=== PATIENT | female | born 1960 | race Caucasian/White ===

== ENCOUNTER 2018-06-25 12:08 | Emergency (ER) | payer OTHER ==
[2018-06-25 12:35] VITALS: BP 114/67; PULSE 77; TEMP 98; BMI 27.3
--- NOTE | 2018-06-25 13:29 | PDOC ---
History of Present Illness - General Chief Complaint: Pain Stated Complaint: PAIN Time Seen by Provider: 06/25/18 13:29 History Source: Patient Exam Limitations: No Limitations - History of Present Illness Initial Comments: 06/25/18 13:50 58 year old female with PMH fibromyalia, OA presented to ED for epigastric pain x5 days. She stated her pain is constant, radiating to her left flank/back, no alleviating or aggravating factors, no association with exertion/food, described as "a pinch". She denied vomiting, fever, chest pain, shortness of breath, blood in stool. She admitted to nausea. She stated she had one episode of loose watery diarrhea yesterday. She stated she did not call her PCP, "because they would probably send me here anyways". PCP: Dr. Finley Neuro: Dr. Crawford Rheum: Dr. Rider Pt had routine labratory testing performed by Dr. Rider 06/17/18: - Hgb 10.9, HCT 32.3 - UA: trace LE, 0 WBC - ALP 135 - BUN 23 - Cr 0.8 Past History - Past Medical History Allergies/Adverse Reactions: Allergies Allergy/AdvReac Type Severity Reaction Status Date / Time No Known Drug Allergies Allergy Verified 06/25/18 12:35 Home Medications: Ambulatory Orders Duloxetine HCl [Cymbalta] 30 mg PO BID 05/28/15 Hydrocodone/Acetaminophen [Vicodin Es 7.5-300 mg Tablet] 1 each PO BID #14 tablet 05/28/15 Meloxicam [Mobic (Nf) -] 15 mg PO DAILY 05/28/15 Ondansetron [Zofran -] 4 mg PO BID #14 tablet 05/28/15 Pregabalin [Lyrica] 75 mg PO HS 05/28/15 Tramadol HCl 50 mg PO TID 05/28/15 Ibuprofen 600 mg PO TID #9 tablet 06/25/18 Sulfamethoxazole/Trimethoprim [Bactrim Ds -] 1 tab PO BID #20 tablet 06/25/18 Anemia: No Asthma: No Cancer: No Cardiac Disorders: No CVA: No COPD: No CHF: No Dementia: No Diabetes: No GI Disorders: No Disorders: No HTN: No Hypercholesterolemia: No Liver Disease: No Seizures: No Thyroid Disease: No - Surgical History Abdominal Surgery: No Appendectomy: No Cardiac Surgery: No Cholecystectomy: No Lung Surgery: No Neurologic Surgery: No Orthopedic Surgery: No - Immunization History Td Vaccination: Yes (2012) Immunization Up to Date: Yes - Suicide/Smoking/Psychosocial Hx Smoking Status: Yes Smoking History: Former smoker Have you smoked in the past 12 months: No Number of Cigarettes Smoked Daily: 3 Information on smoking cessation initiated: No Hx Alcohol Use: Yes Drug/Substance Use Hx: Yes Substance Use Type: Alcohol, Marijuana Hx Substance Use Treatment: No Review of Systems - Review of Systems Able to Perform ROS?: Yes Comments:: 06/25/18 13:55 General: denied fever, chills, night sweats, generalized weakness. HEENT: denied sore throat, rhinorrhea, ear pain. Heart: denied chest pain, palpitations, syncope, lower extremity swelling, diaphoresis. Respiratory: denied shortness of breath, cough, sputum production, hemoptysis. Abdomen: admitted to abdominal pain, nausea, diarrhea. denied vomiting, constipation, blood in stool. : denied dysuria, increased urinary frequency, hematuria, urinary incontinence , flank pain. Back: admitted to back pain. Musculoskeletal: denied joint pain, muscle pain, joint swelling. Neurological: denied headache, dizziness, numbness, tingling, weakness. Skin: denied rash, laceration, abrasion. *Physical Exam - Vital Signs Last Vital Signs Temp Pulse Resp BP Pulse Ox 98.0 F 77 17 114/67 95 06/25/18 12:32 06/25/18 12:32 06/25/18 12:32 06/25/18 12:32 06/25/18 12:32 - Physical Exam Comments: 06/25/18 13:57 Constitutional: Well-nourished, Well-developed, appearing stated age. HEENT: head is normocephalic, atraumatic. EOMI. PERRLA. Neck: supple. Full ROM. Heart: regular rhythm. no murmurs, rubs or gallops. Lungs: clear to auscultation bilaterally. no crackles, rhonchi or wheezing. no stridor. Abdomen: soft, flat. epigastric tenderness to palpation. normal bowel sounds. no rebound, guarding, masses. Back: positive left sided CVA tenderness. negative right sided CVA tenderness. Extremities: Peripheral pulses intact. No lower extremity edema. Neurological: CN 2-12 grossly intact. Moves all four extremities. Psych: awake, alert, oriented x3. Follows commands. Answers questions appropriately. Moderate Sedation - Procedure Monitoring Vital Signs: Procedure Monitoring Vital Signs Temperature 98.0 F 06/25/18 12:32 Pulse Rate 77 06/25/18 12:32 Respiratory Rate 17 06/25/18 12:32 Blood Pressure 114/67 06/25/18 12:32 O2 Sat by Pulse Oximetry (%) 95 06/25/18 12:32 ED Treatment Course - LABORATORY CBC & Chemistry Diagram: 06/25/18 13:47 06/25/18 13:45 Medical Decision Making - Medical Decision Making 06/25/18 13:57 58 year old female with above PMH presented to ED for epigastric pain radiating to left flank/back associated with nausea and 1 episode of diarrhea (loose, watery). Initial Vital Signs Temp Pulse Resp BP Pulse Ox 98.0 F 77 17 114/67 95 06/25/18 12:32 06/25/18 12:32 06/25/18 12:32 06/25/18 12:32 06/25/18 12:32 Afebrile. No tachycardia. No tachypnea. No hypotension. No hypoxia on room air. Pepcid, Maalox, Zofran ordered for epigastric pain/nausea. 1000 cc bolus normal saline ordered for hydration. Pending UA/UC, CBC, CMP for evaluation of possible UTI/nephrolithiasis. Pending EKG, cardiac enzymes for evaluation of possible ACS/arrhythmia. Pending lipase for evaluation of possible pancreatitis. 06/25/18 14:31 Urine Test Results Urine Color Yellow 06/25/18 13:45 Urine Appearance Clear 06/25/18 13:45 Urine pH 7.0 (5.0-8.0) 06/25/18 13:45 Ur Specific [place] 1.014 (1.010-1.035) 06/25/18 13:45 Urine Protein Negative (NEGATIVE) 06/25/18 13:45 Urine Glucose (UA) Negative (NEGATIVE) 06/25/18 13:45 Urine Ketones Negative (NEGATIVE) 06/25/18 13:45 Urine Blood Negative (NEGATIVE) 06/25/18 13:45 Urine Nitrite Negative (NEGATIVE) 06/25/18 13:45 Urine Bilirubin Negative (<2.0 mg/dL) 06/25/18 13:45 Ur Leukocyte Esterase 1+ (NEGATIVE) H 06/25/18 13:45 Ur Epithelial Cells Rare /HPF (FEW) 06/25/18 13:45 Urine Bacteria Rare /hpf (NONE SEEN) 06/25/18 13:45 Urine Mucus Rare 06/25/18 13:45 WBC>5 Pt has urinary tract infection, likely pyelo with patient having flank pain. - Bactrim ordered for antibiotic coverage - Toradol ordered for pain 06/25/18 14:35 Lab lost CBC tube. Will redraw. 06/25/18 15:00 CBC WBC 4.9 K/mm3 (4.0-10.0) 06/25/18 13:47 RBC 3.94 M/mm3 (3.60-5.2) 06/25/18 13:47 Hgb 12.6 GM/dL (10.7-15.3) 06/25/18 13:47 Hct 36.0 % (32.4-45.2) 06/25/18 13:47 MCV 91.3 fl (80-96) 06/25/18 13:47 MCH 31.9 pg (25.7-33.7) 06/25/18 13:47 MCHC 34.9 g/dl (32.0-36.0) 06/25/18 13:47 RDW 17.3 % (11.6-15.6) H 06/25/18 13:47 Plt Count 350 K/MM3 (134-434) 06/25/18 13:47 MPV 7.9 fl (7.5-11.1) 06/25/18 13:47 Absolute Neuts (auto) 2.7 K/mm3 (1.5-8.0) 06/25/18 13:47 Neutrophils % 54.2 % (42.8-82.8) 06/25/18 13:47 Lymphocytes % 36.4 % (8-40) 06/25/18 13:47 Monocytes % 7.3 % (3.8-10.2) 06/25/18 13:47 Eosinophils % 1.5 % (0-4.5) 06/25/18 13:47 Basophils % 0.6 % (0-2.0) 06/25/18 13:47 Nucleated RBC % 0 % (0-0) 06/25/18 13:47 No leukocytosis. No anemia. CMP Sodium 139 mmol/L (136-145) 06/25/18 13:45 Potassium 4.5 mmol/L (3.5-5.1) 06/25/18 13:45 Chloride 102 mmol/L (98-107) 06/25/18 13:45 Carbon Dioxide 29 mmol/L (21-32) 06/25/18 13:45 Anion Gap 7 MMOL/L (8-16) L 06/25/18 13:45 BUN 11 mg/dL (7-18) 06/25/18 13:45 Creatinine 0.7 mg/dL (0.55-1.3) 06/25/18 13:45 Creat Clearance w eGFR > 60 (>60) 06/25/18 13:45 Random Glucose 77 mg/dL (74-106) 06/25/18 13:45 Calcium 9.2 mg/dL (8.5-10.1) 06/25/18 13:45 Total Bilirubin 0.4 mg/dL (0.2-1) 06/25/18 13:45 AST 41 U/L (15-37) H 06/25/18 13:45 ALT 39 U/L (13-61) 06/25/18 13:45 Alkaline Phosphatase 175 U/L (45-117) H 06/25/18 13:45 Creatine Kinase 70 IU/L (26-192) 06/25/18 13:45 Troponin I < 0.02 ng/ml (0.00-0.05) 06/25/18 13:45 Total Protein 7.8 g/dl (6.4-8.2) 06/25/18 13:45 Albumin 4.0 g/dl (3.4-5.0) 06/25/18 13:45 Lipase 237 U/L (73-393) 06/25/18 13:45 No electrolyte abnormalities. No ALENA. Mild elevation of AST. Normal cardiac enzymes. Normal lipase. 06/25/18 15:05 EKG performed at 1500: rate 71, regular rhythm, normal axis, normal intervals, isolated flat T in aVL. - No prior to compare - Pt denied chest pain Pt will be discharged with Bactrim and Ibuprofen prescription. *DC/Admit/Observation/Transfer Diagnosis at time of Disposition: Urinary tract infection, Pyelonephritis - Discharge Dispostion Disposition: HOME Condition at time of disposition: Stable Decision to Admit order: No - Prescriptions Prescriptions: Ibuprofen 600 mg PO TID #9 tablet Sulfamethoxazole/Trimethoprim [Bactrim Ds -] 1 tab PO BID #20 tablet - Referrals Referrals: Flori Finley MD [Primary Care Provider] - - Patient Instructions Printed Discharge Instructions: DI for Kidney Infection Additional Instructions: You were seen today for abdominal and flank pain. Your urine analysis revealed a urinary tract infection that has likely tracked up to your kidney and is causing your flank pain. I have sent a prescription to your pharmacy for an antibiotic and pain medication. Take as advised on labels. Finish ALL of the antibiotics, do not stop early or miss any doses. Drink lots of clear fluids, like water, to stay hydrated. Follow up with your primary care doctor in 1-2 days, tell them you were seen in the Emergency Department. Your care is not complete until you follow up. Return to the Emergency Department for worsening pain, fever, vomiting, chest pain, shortness of breath, lightheadedness or any other new, worsening or concerning symptoms. - Post Discharge Activity Forms/Work/School Notes: Back to Work
[2018-06-25] MEDS ORDERED: ONDANSETRON 4 MG/2 ML VIAL IVPUSH ONE (13:55)
[2018-06-25] MEDS ORDERED: FAMOTIDINE 20 MG/50 ML IVPB 20 MG/50 ML MG IVPB ONE ×2 (13:55→15:00)
[2018-06-25] MEDS ORDERED: MAG HYDROX/AL HYDROX/SIMETH 30 ML UNIT-DOSE CUP PO ONE (13:55)
[2018-06-25] MEDS ORDERED: SODIUM CHLORIDE 1,000 ML IV STA (13:55)
[2018-06-25 14:09] LABS: URINE APPEARANCE CLEAR; URINE BILIRUBIN NEGATIVE (<2.0 mg/dL); URINE COLOR YELLOW; URINE GLUCOSE (UA) NEGATIVE (NEGATIVE); URINE KETONE NEGATIVE (NEGATIVE); URINE LEUK ESTERASE 1+ (NEGATIVE); URINE NITRITE NEGATIVE (NEGATIVE); URINE PROTEIN NEGATIVE (NEGATIVE); URINE UROBILINOGEN NEGATIVE mg/dL (0.2-1.0)
[2018-06-25 14:21] LABS: INR 0.97 (0.83-1.09); PROTHROMBIN TIME (PATIENT) 11.4 SEC (9.7-13.0)
[2018-06-25 14:24] LABS: ACTIVATED PTT 32.9 SECONDS (25.2-36.5)
[2018-06-25 14:27] LABS: EPI CELLS RARE /HPF (FEW); URINE BACTERIA RARE /hpf (NONE SEEN); URINE MUCUS RARE
[2018-06-25] MEDS ORDERED: SULFAMETHOXAZOLE/TRIMETHOPRIM 800MG/160MG D.S. TABLET PO ONE (14:30)
[2018-06-25] MEDS ORDERED: KETOROLAC TROMETHAMINE 30 MG/1 ML VIAL IVPUSH ONE (14:30)
[2018-06-25 14:46] LABS: ALK PHOS 175 U/L (45-117); ANION GAP 7 MMOL/L (8-16); BILIRUBIN,TOTAL 0.4 mg/dL (0.2-1); BLOOD UREA NITROGEN 11 mg/dL (7-18); CALCIUM 9.2 mg/dL (8.5-10.1); CHLORIDE 102 mmol/L (98-107); CO2 29 mmol/L (21-32); CREATININE 0.7 mg/dL (0.55-1.3); GLUCOSE,RANDOM 77 mg/dL (74-106); LIPASE 237 U/L (73-393); POTASSIUM 4.5 mmol/L (3.5-5.1); SGOT/AST 41 U/L (15-37); SGPT/ALT 39 U/L (13-61); SODIUM 139 mmol/L (136-145); TOT PROT 7.8 g/dl (6.4-8.2)
[2018-06-25 14:57] LABS: BASO % 0.6 % (0-2.0); EOS % 1.5 % (0-4.5); HEMOGLOBIN 12.6 GM/dL (10.7-15.3); LYMPH % 36.4 % (8-40); MCH 31.9 pg (25.7-33.7); MCHC 34.9 g/dl (32.0-36.0); MEAN CELL VOLUME 91.3 fl (80-96); MEAN PLT VOLUME 7.9 fl (7.5-11.1); MONO % 7.3 % (3.8-10.2); NEUT % 54.2 % (42.8-82.8); PLATELET COUNT 350 K/MM3 (134-434); RBC 3.94 M/mm3 (3.60-5.2); RDW 17.3 % (11.6-15.6); WHITE BLOOD COUNT 4.9 K/mm3 (4.0-10.0)
[2018-06-25] MEDS ORDERED: SULFAMETHOXAZOLE/TRIMETHOPRIM 800MG/160MG D.S. TABLET ONE (14:59)
[2018-06-25] MEDS ORDERED: MAG HYDROX/AL HYDROX/SIMETH 30 ML UNIT-DOSE CUP ONE (15:00)
[2018-06-25] MEDS ORDERED: KETOROLAC TROMETHAMINE 30 MG/1 ML VIAL ONE (15:00)
[2018-06-25] MEDS ORDERED: ONDANSETRON 4 MG/2 ML VIAL ONE (15:00)
--- NOTE | 2018-06-25 15:58 | PDOC ---
Attending Attestation - Resident Resident Name: Carmela Ingram - ED Attending Attestation I have performed the following: I have examined & evaluated the patient, The case was reviewed & discussed with the resident, I agree w/resident's findings & plan - HPI HPI: 06/25/18 15:56 58-year-old female with history of multiple pain syndromes presents with 5 days of worsening epigastric/left flank pain, no fevers or chills or urinary complaints, nausea but no vomiting or diarrhea or constipation. No history of UTI or kidney stone, no history of recurring gastritis or ulcers. - Physicial Exam PE: 06/25/18 15:57 vitals are within normal limits Comfortable and well-appearing Abdomen is soft and nondistended, tender in the left upper quadrant and mostly tender in the left CVA region, no guarding or rebound No rash - Medical Decision Making 06/25/18 15:57 58-year-old female with left flank pain progressive over 5 days, exam localizes to left flank, no signs or symptoms of SIRS or sepsis. Labs are within normal limits Urinalysis with elevated white blood cells, only 1 red blood cell. Consistent with pyelonephritis without complications or evidence of sepsis Received IV fluids, candidate for discharge on oral antibiotic regimen, follow up with PCP, understands strict return criteria Heart Score/ECG Review #1 ECG reviewed & interpreted by me at: 15:00 General ECG Interpretation: Sinus Rhythm, Normal Rate (71), Normal Intervals ( qtc 449), No acute ischemic changes
--- NOTE | 2018-06-26 12:45 | EKG ---
Test Reason : Blood Pressure : / mmHG Vent. Rate : 071 BPM Atrial Rate : 071 BPM P-R Int : 154 ms QRS Dur : 078 ms QT Int : 414 ms P-R-T Axes : 073 078 066 degrees QTc Int : 449 ms NORMAL SINUS RHYTHM NORMAL ECG NO PREVIOUS ECGS AVAILABLE Confirmed by NALDO ALICIA, KAREN ([id number]) on 06/26/2018 12:45:31 PM Referred By: Confirmed By:KAREN HITCHCOCK MD
== END 2018-06-25 15:35 | disposition home or self-care (01) ==
LOC: JER 12:08
PROC: 3E033GC Introduction of Other Therapeutic Substance into Peripheral Vein, Percutaneous Approach (ICD-10-PCS; principal; 2018-06-25)
PROC: 3E033GC Introduction of Other Therapeutic Substance into Peripheral Vein, Percutaneous Approach (ICD-10-PCS; 2018-06-25)
PROC: 3E0333Z Introduction of Anti-inflammatory into Peripheral Vein, Percutaneous Approach (ICD-10-PCS; 2018-06-25)
DX: N39.0 Urinary tract infection, site not specified (principal); N12 Tubulo-interstitial nephritis, not specified as acute or chronic; B96.89 Other specified bacterial agents as the cause of diseases classified elsewhere; M79.7 Fibromyalgia; M19.90 Unspecified osteoarthritis, unspecified site
CPT/HCPCS: 36415; 80053; 81003; 81015; 82550; 83690; 84484; 85025; 85610; 85730; 86850; 86900; 86901; 87086; 87186; 93005; 93010; 96365; 96375; 99282-25; J7030

== ENCOUNTER 2019-04-04 12:56 | Emergency (ER) | payer OTHER ==
[2019-04-04 13:10] VITALS: BP 126/68; PULSE 71; TEMP 97.6; BMI 28.5
[2019-04-04] MEDS ORDERED: LIDOCAINE 5% TOPICAL PATCH TP ONE (13:26)
[2019-04-04] MEDS ORDERED: KETOROLAC TROMETHAMINE 60 MG/2 ML VIAL IM ONE (13:26)
--- NOTE | 2019-04-04 13:36 | PDOC ---
History of Present Illness - General Chief Complaint: Back Pain Stated Complaint: BACK PAIN Time Seen by Provider: 04/04/19 13:11 History Source: Patient Exam Limitations: No Limitations Past History - Travel Traveled outside of the country in the last 30 days: No Close contact w/someone who was outside of country & ill: No - Past Medical History Allergies/Adverse Reactions: Allergies Allergy/AdvReac Type Severity Reaction Status Date / Time No Known Drug Allergies Allergy Verified 04/04/19 13:05 Home Medications: Ambulatory Orders Duloxetine HCl [Cymbalta] 30 mg PO BID 05/28/15 Hydrocodone/Acetaminophen [Vicodin Es 7.5-300 mg Tablet] 1 each PO BID #14 tablet 05/28/15 Meloxicam [Mobic (Nf) -] 15 mg PO DAILY 05/28/15 Ondansetron [Zofran -] 4 mg PO BID #14 tablet 05/28/15 Pregabalin [Lyrica] 75 mg PO HS 05/28/15 Tramadol HCl 50 mg PO TID 05/28/15 Ibuprofen 600 mg PO TID #9 tablet 06/25/18 Sulfamethoxazole/Trimethoprim [Bactrim Ds -] 1 tab PO BID #20 tablet 06/25/18 Diclofenac Sodium [Voltaren] 100 gm TP DAILY #1 tube 04/04/19 Anemia: No Asthma: No Cancer: No Cardiac Disorders: No CVA: No COPD: No CHF: No Dementia: No Diabetes: No GI Disorders: No Disorders: No HTN: No Hypercholesterolemia: No Liver Disease: No Seizures: No Thyroid Disease: No - Surgical History Abdominal Surgery: No Appendectomy: No Cardiac Surgery: No Cholecystectomy: No Lung Surgery: No Neurologic Surgery: No Orthopedic Surgery: No - Immunization History Td Vaccination: Yes (2012) Immunization Up to Date: Yes - Suicide/Smoking/Psychosocial Hx Smoking Status: Yes Smoking History: Former smoker Have you smoked in the past 12 months: No Number of Cigarettes Smoked Daily: 3 If you are a former smoker, when did you quit?: 2017 Information on smoking cessation initiated: No Hx Alcohol Use: No Drug/Substance Use Hx: No Substance Use Type: Alcohol, Marijuana Hx Substance Use Treatment: No Review of Systems - Review of Systems Able to Perform ROS?: Yes Comments:: 04/04/19 13:36 CONSTITUTIONAL: Absent: fever, chills, diaphoresis, generalized weakness, malaise, loss of appetite GASTROINTESTINAL: Absent: abdominal pain, abdominal distension, nausea, vomiting, diarrhea, constipation, melena, hematochezia GENITOURINARY: Absent: dysuria, frequency, urgency, hesitancy, hematuria, flank pain, genital pain MUSCULOSKELETAL: Present: low back pain Absent: arthralgia, joint swelling SKIN: Absent: rash, itching, pallor NEUROLOGIC: Absent: headache, focal weakness or paresthesias, dizziness, unsteady gait, seizure, mental status changes, bladder or bowel incontinence PSYCHIATRIC: Absent: anxiety, depression, suicidal or homicidal ideation, hallucinations. Is the patient limited Malaysian proficient: No *Physical Exam - Vital Signs Last Vital Signs Temp Pulse Resp BP Pulse Ox 97.6 F 71 16 126/68 99 04/04/19 13:05 04/04/19 13:05 04/04/19 13:05 04/04/19 13:05 04/04/19 13:05 - Physical Exam Comments: 04/04/19 13:37 GENERAL: Well developed, well nourished. Awake and alert. No acute distress. HEENT: Normocephalic, atraumatic. PERRLA, EOMI. No conjunctival pallor. Sclera are non- icteric. Moist mucous membranes. Oropharynx is clear. NECK: Supple. Full ROM. No JVD. Carotid pulses 2+ and symmetric, without bruits. No thyromegaly. No lymphadenopathy. CARDIOVASCULAR: Regular rate and rhythm. No murmurs, rubs, or gallops. Distal pulses are 2+ and symmetric. PULMONARY: No evidence of respiratory distress. Lungs clear to auscultation bilaterally. No wheezing, rales or rhonchi. ABDOMINAL: Soft. Non-tender. Non-distended. No rebound or guarding. No organomegaly. Normoactive bowel sounds. MUSCULOSKELETAL TTP of the R paraspinous muscles, L3-L5, with palpable knot consistent with muscle spasm. (+) straight leg raise on the R. Normal range of motion at all joints. No bony deformities or tenderness. No CVA tenderness. EXTREMITIES: No cyanosis. No clubbing. No edema. No calf tenderness. SKIN: Warm and dry. Normal capillary refill. No rashes. No jaundice. NEUROLOGICAL: Alert, awake, appropriate. Cranial nerves 2-12 intact. No deficits to light touch and temperature in face, upper extremities and lower extremities. No motor deficits in the in face, upper extremities and lower extremities. Normoreflexic in the upper and lower extremities. Normal speech. Toes are down- going bilaterally. Gait is normal without ataxia. PSYCHIATRIC: Cooperative. Good eye contact. Appropriate mood and affect. Medical Decision Making - Medical Decision Making 04/04/19 13:39 The patient 58 y/o F who presents to the ER for low back pain. She has hx of herniated discs at L4 and L5 and follows with pain management. She was supposed to see her pain management doctor today but her appointment got cancelled. She states that she is having a flare of her low back pain and that it is radiating down the R leg. She is requesting a toradol shot at this time. Denies fevers, chills, trauma, saddle anesthesia, bladder/bowel incontinence. A/P: Low back pain -Pt with TTP of the R paraspinous muscles, L3-L5, with palpable knot consistent with muscle spasm. (+) straight leg raise on the R -No trauma, or fever. No saddle anesthesia or bladder/bowel incontinence. No CVA tenderness. -Pt is neurologically intact on exam with no focal findings. -Toradol given with relief of symptoms -DC home. Ortho follow up given for if symptoms do not resolve. -I discussed the physical exam findings, ancillary test results and final diagnoses with the patient. I answered all of the patient's questions. The patient was satisfied with the care received and felt comfortable with the discharge plan and treatment plan. The Patient agrees to follow up with the primary care physician/specialist within 24-72 hours. Return precautions were given. *DC/Admit/Observation/Transfer Diagnosis at time of Disposition: Low back pain Qualifiers: Chronicity: acute Back pain laterality: right Sciatica presence: with sciatica Sciatica laterality: sciatica of right side Qualified Code(s): M54.41 - Lumbago with sciatica, right side - Discharge Dispostion Disposition: HOME Condition at time of disposition: Stable Decision to Admit order: No - Referrals Referrals: Jordan Araujo MD [Staff Physician] - - Patient Instructions Printed Discharge Instructions: DI for Low Back Pain Additional Instructions: You were evaluated for your back pain Take your medications as prescribed by pain management You may use the Volteran cream once a day to the affected area Please follow up with your pain management doctor this week Return to the ER for numbness or tingling in your groin, weakness to the extremities, loss of bladder/bowel function - Post Discharge Activity
[2019-04-04] MEDS ORDERED: KETOROLAC TROMETHAMINE 60 MG/2 ML VIAL ONE (13:38)
[2019-04-04] MEDS ORDERED: LIDOCAINE 5% TOPICAL PATCH ONE (13:38)
== END 2019-04-04 13:59 | disposition home or self-care (01) ==
LOC: JERFT 12:56
PROC: 3E0233Z Introduction of Anti-inflammatory into Muscle, Percutaneous Approach (ICD-10-PCS; principal; 2019-04-04)
DX: M54.41 Lumbago with sciatica, right side (principal); Z87.891 Personal history of nicotine dependence
CPT/HCPCS: 96372; 99281-25

== ENCOUNTER 2020-03-17 09:59 | Emergency (ER) | payer OTHER ==
[2020-03-17 10:18] VITALS: BP 109/62; PULSE 83; TEMP 98; BMI 29.6
[2020-03-17] MEDS ORDERED: SULFAMETHOXAZOLE/TRIMETHOPRIM 800MG/160MG D.S. TABLET PO ONE (10:57)
--- NOTE | 2020-03-17 11:03 | PDOC ---
History of Present Illness - General Chief Complaint: Pain Stated Complaint: RT TOE INJURY Time Seen by Provider: 03/17/20 10:32 History Source: Patient Exam Limitations: No Limitations - History of Present Illness Initial Comments: 03/17/20 10:58 Patient is a 59-year-old female who presents to the ED with a right great toe infection that she has been struggling with since January 21, 2020. She states she was out shopping when somebody ran over her great toe with a shopping cart. Since then she has been having waxing and waning infection to the toe. She states she has had pus coming from the toe which she has soaked and expressed over the last month and a half. She denies any fevers or chills. She states yesterday the pus increased so she came to the emergency department for further evaluation. She states her primary doctor is out on vacation. She is also having surgery tomorrow with Dr. Franco for a rotator cuff on the right side. The patient states the area does hurt but she denies any significant pain. The patient states she has orthopaedic history but not other medical history. Past History - Medical History Allergies/Adverse Reactions: Allergies Allergy/AdvReac Type Severity Reaction Status Date / Time No Known Drug Allergies Allergy Verified 03/17/20 10:18 Home Medications: Ambulatory Orders Meloxicam [Mobic (Nf) -] 15 mg PO DAILY 05/28/15 Amitriptyline HCl [Elavil -] 50 mg PO HS 03/11/20 Cetirizine HCl [Zyrtec] 10 mg PO DAILY 03/11/20 Diclofenac Sodium [Voltaren] 100 gm TP DAILY PRN 03/11/20 Duloxetine HCl [Cymbalta] 60 mg PO BID 03/11/20 Pramipexole Di-HCl [Mirapex] 1 mg PO BID 03/11/20 Pregabalin [Lyrica -] 150 mg PO TID 03/11/20 Topiramate 50 mg PO DAILY 03/11/20 Sulfamethoxazole/Trimethoprim [Bactrim Ds Tablet] 1 each PO BID 7 Days #14 tablet 03/17/20 Anemia: No Asthma: No Cancer: No Cardiac Disorders: No CVA: No COPD: No CHF: No Dementia: No Diabetes: No GI Disorders: No Disorders: No HTN: No Hypercholesterolemia: No Liver Disease: No Seizures: No Thyroid Disease: No - Surgical History Abdominal Surgery: No Appendectomy: No Cardiac Surgery: No Cholecystectomy: No Lung Surgery: No Neurologic Surgery: No Orthopedic Surgery: No - Immunization History Td Vaccination: Yes (2012) Immunization Up to Date: Yes - Psycho-Social/Smoking History Smoking Status: Yes Smoking History: Never smoked Have you smoked in the past 12 months: No Number of Cigarettes Smoked Daily: 3 If you are a former smoker, when did you quit?: 2017 - Substance Abuse Hx (Audit-C & DAST Scrn) How often the patient has a drink containing alcohol: Never Score: In Men: 4 or > Positive; In Women: 3 or > Positive: 0 Screen Result (Pos requires Nsg. Audit-10AR): Negative Review of Systems - Review of Systems Comments:: 03/17/20 11:02 - Review of Systems Able to Perform ROS?: Yes Constitutional: No: Fever, Chills, Loss of Appetite, Night Sweats, Weakness HEENTM: No: Eye Pain, Vision changes, Ear Pain, Throat Pain, Throat Swelling, Mouth Pain, Difficulty Swallowing Respiratory: No: Cough, Shortness of Breath, Wheezing, Sputum Production Cardiac (ROS): No: Chest Pain, Chest Tightness, Palpitations, Irregular Heart Beat, Edema ABD/GI: No: Nausea, Vomiting, Abdominal Pain, Diarrhea : No Dysuria, No Hematuria, No Frequency, No Urgency Musculoskeletal: No: Muscle Pain, Back Pain, Joint Pain, Muscle Weakness, Neck Pain Integumentary: No: Lesions, Rash; Positive: right great toe paronychia Neurological: No: Headache, Numbness, Tingling, Weakness, Speech Difficulties *Physical Exam - Vital Signs Last Vital Signs Temp Pulse Resp BP Pulse Ox 98 F 83 18 109/62 99 03/17/20 10:14 03/17/20 10:14 03/17/20 10:14 03/17/20 10:14 03/17/20 10:14 - Physical Exam 03/17/20 11:03 - Physical Exam General Appearance: Nourished, Appropriately Dressed, No Distress HEENT: EOMI, Normal Voice, Hearing Grossly Normal Neck: Supple, No Lymphadenopathy (R), No Lymphadenopathy (L), No Rigidity, No Decreased range of motion Respiratory/Chest: Lungs Clear, Normal Breath Sounds. No Respiratory Distress, No Accessory Muscle Use Cardiovascular: Regular Rhythm, Regular Rate, S1, S2 Musculoskeletal: Normal Inspection. No Decreased Range of Motion Extremity: Normal Capillary Refill, Normal Inspection Integumentary: Normal Color, Dry. No Rash; there is a paronychia appreciated to the right great toe with active drainage. There is some erythema to the medial aspect of the right great toe. DP and PT pulses palpated. Sensation intact distally. No crepitus appreciated. Neurologic: warp hauler II-XII NML intact, Fully Oriented, Alert, Normal Mood/Affect, Normal Response Medical Decision Making - Medical Decision Making 03/17/20 11:05 Assessment: Patient is a 59-year-old female with a right great toe paronychia that is already draining. Plan: -Pus expressed until clear blood drained. -First dose of Bactrim given to the patient in the ED -The patient has been made aware to speak with Dr. Franco regarding her great toe infection as she is supposed to have surgery tomorrow for her left shoulder. -We will discharge the patient with a prescription for Bactrim. -She understands and agrees with this treatment plan and she is stable for discharge. Discharge - Discharge Information Problems reviewed: Yes Clinical Impression/Diagnosis: Paronychia of great toe, right Condition: Stable Disposition: HOME - Additional Discharge Information Prescriptions: Sulfamethoxazole/Trimethoprim [Bactrim Ds Tablet] 1 each PO BID 7 Days #14 tablet - Follow up/Referral Referrals: Zofia Jackson MD [Primary Care Provider] - Nimesh Franco MD [Staff Physician] - Marlon Quiroga MD [Staff Physician] - (Call today for an appointment) Jaylen Jaramillo DPM [Staff Physician] - (Call for an appointment) - Patient Discharge Instructions Patient Printed Discharge Instructions: DI for Paronychia Additional Instructions: You have an infection to the skin surrounding your great toe. You should continue to soak the toe to help the wound express the pus. Be sure to call your orthopedic surgeon, Dr. Franco, to discuss with him that you do have an infection in your toe for your upcoming surgery tomorrow. Follow-up with orthopedic surgery if they treat toes, otherwise you can follow-up with 1 of the blast furnace supervisor that we have referred to you. Take the antibiotics as prescribed and complete the entire course. Keep the wound clean and dry. - Post Discharge Activity
[2020-03-17] MEDS ORDERED: SULFAMETHOXAZOLE/TRIMETHOPRIM 800MG/160MG D.S. TABLET ONE (11:10)
== END 2020-03-17 11:17 | disposition home or self-care (01) ==
LOC: JERFT 09:59
DX: L03.031 Cellulitis of right toe (principal)
CPT/HCPCS: 99283-25

== ENCOUNTER 2020-04-08 06:09 | Day surgery (SDC) | payer OTHER ==
[2020-03-11 11:02] VITALS: BMI 29.6
[2020-04-08] MEDS ORDERED: MIDAZOLAM HCL 2 MG/2 ML SINGLE DOSE VIAL ONE ×2 (06:56→07:19)
[2020-04-08] MEDS ORDERED: SUCCINYLCHOLINE CHLORIDE 200 MG/10 ML SYRINGE ONE (06:58)
[2020-04-08] MEDS ORDERED: LIDOCAINE HCL/PF 2% SDV 5ML VIAL ONE (06:59)
[2020-04-08] MEDS ORDERED: ONDANSETRON 4 MG/2 ML VIAL ONE (06:59)
[2020-04-08] MEDS ORDERED: KETOROLAC TROMETHAMINE 30 MG/1 ML VIAL ONE (06:59)
[2020-04-08] MEDS ORDERED: DEXAMETHASONE SOD PHOSPHATE 4 MG/1 ML VIAL ONE (06:59)
[2020-04-08] MEDS ORDERED: ROCURONIUM BROMIDE 50 MG/5 ML SYRINGE ONE (06:59)
[2020-04-08] MEDS ORDERED: PROPOFOL 20 ML ONE ×2 (07:00→08:20)
[2020-04-08] MEDS ORDERED: oxyCODONE HCL 5 MG TABLET PO PRN ×2 (07:13)
[2020-04-08] MEDS ORDERED: ONDANSETRON 4 MG/2 ML VIAL IVPUSH PRN (07:13)
[2020-04-08] MEDS ORDERED: LACTATED RINGERS SOLUTION 1,000 ML IV SCH (07:15)
[2020-04-08] MEDS ORDERED: ROPIVACAINE HCL 0.5% 30ML VIAL ONE (07:19)
--- NOTE | 2020-04-08 07:58 | HP ---
[facility] - Chief Complaint Chief Complaint: left shoulder pain - Past Medical History Allergies/Adverse Reactions: Allergies Allergy/AdvReac Type Severity Reaction Status Date / Time No Known Drug Allergies Allergy Verified 04/08/20 06:32 - Current Medications Current Medications: Home Medications Medication Instructions Recorded Meloxicam [Mobic (Nf) -] 15 mg PO DAILY 05/28/15 Amitriptyline HCl [Elavil -] 50 mg PO HS 03/11/20 Cetirizine HCl [Zyrtec] 10 mg PO DAILY 03/11/20 Diclofenac Sodium [Voltaren] 100 gm TP DAILY PRN 03/11/20 Duloxetine HCl [Cymbalta] 60 mg PO BID 03/11/20 Pramipexole Di-HCl [Mirapex] 1 mg PO BID 03/11/20 Pregabalin [Lyrica -] 150 mg PO TID 03/11/20 Topiramate 50 mg PO DAILY 03/11/20 Metoprolol Succinate 04/08/20 Satellite Physical Exam - Physical Examination Vital Signs: Vital Signs Period Temp Pulse Resp BP Sys/Skelton Pulse Ox Last 24 Hr 97.7 F 73 20 104/54 99 General Appearance: Well Nourished, Well Developed, Alert & Oriented x3 ENT: Clear Lung: Normal air movement Extremities: Other (left shoulder- + ttp, decr rom, + neer, + abad, + empty can, nvi) Neurological: Intact, Alert, Oriented Satellite Impression/Plan - Impression/Plan Impression: left shoulder impingement, rct Operative Procedure: left shoulder arthroscopy with RCR, SAD Date to be Performed: 04/08/20
[2020-04-08] MEDS ORDERED: ceFAZolin SODIUM 1 GM VIAL ONE (08:26)
--- NOTE | 2020-04-08 09:04 | OP ---
Operative Note - Note: Operative Date: 04/08/20 Pre-Operative Diagnosis: left shoulder impingement syndrome, RTC tear Operation: left shoulder arthroscopy, subacromial decompression, distal clavicle excision Findings: very small partial undersurface RTC tear Post-Operative Diagnosis: Same as Pre-op Surgeon: Nimesh Franco Refrigerator Cabinetmaker: Declan Levin Anesthesiologist/GROCERY CADDY: Akin Elise Anesthesia: General, Local Specimens Removed: shavings Estimated Blood Loss (mls): 15 Drains, Volume Out (mls): 0 Blood Volume Replaced (mls): 0 Fluid Volume Replaced (mls): 1,000 Operative Report Dictated: Yes
--- NOTE | 2020-04-08 09:05 | OP ---
Operative Note - Note: Operative Date: 04/08/20 (pauline) Pre-Operative Diagnosis: left shoulder impingement, rct Operation: left shoulder arthroscopy with JH PARK, PAMELA Post-Operative Diagnosis: Same as Pre-op Surgeon: Nimesh Franco Under Cutter: Declan Levin Anesthesiologist/DICER MACHINE OPERATOR: Kosta Cuenca Anesthesia: General, Local Specimens Removed: shavings Estimated Blood Loss (mls): 5
--- NOTE | 2020-04-08 10:24 | OP ---
DATE OF OPERATION: 04/08/2020 PREOPERATIVE DIAGNOSIS: Left shoulder impingement syndrome and rotator cuff tear. POSTOPERATIVE DIAGNOSIS: Left shoulder impingement syndrome. SURGERY: Left shoulder arthroscopy, subacromial decompression and distal clavicle excision. SURGEON: Chikis Bennett MD CONCRETE PAVER: RYAN Meneses ANESTHESIOLOGIST: Kosta Cuenca MD and Akin Elise MD ANESTHESIA: Left interscalene block with LMA anesthesia. DRAINS: None. COMPLICATIONS: None. BLOOD LOSS: 15 mL BLOOD GIVEN: None. FLUID REPLACEMENT: Plasma-Lyte 1000 mL SPECIMEN: Arthroscopic shavings. INDICATIONS: This patient is a 59-year-old female with a preoperative diagnosis of left shoulder impingement syndrome and likely rotator cuff tear. After understanding the potential risks, complications, alternatives, benefits of surgery versus nonsurgical treatment the patient elected to undergo this procedure. DESCRIPTION OF PROCEDURE: Patient was brought to the operating room. Peripheral IV placed and IV sedation given. Two g of IV Ancef were given. Left interscalene block was performed. LMA anesthesia was induced. The patient was placed into the beach chair position with ample padding throughout. The left upper extremity was then manipulated and was seen to be loose. It was not tight. She did not have adhesive capsulitis. The left upper extremity was then prepped and draped in a sterile fashion. The bone landmarks were marked out with a marking pen. A posterior portal was established. A diagnostic glenohumeral arthroscopy was performed. From inside the joint everything looked good. Patient's labrum, glenoid, humeral head all looked good with no osteoarthritis or degeneration. The biceps tendon and the undersurface of the rotator cuff also looked good with perhaps a 1% to 2% tear/fraying on the undersurface of the rotator cuff, but otherwise looked good. There was no significant tear, certainly no complete tear, no retractions. It all looked good. Next, our attention turned to the subacromial space. Through the posterior portal a lateral portal was established under direct visualization using a spinal needle. A No. 15 scalpel blade within the green cannula was introduced in the subacromial space. Patient had a moderate amount of soft tissue bursitis and inflammation. The soft tissue bursectomy was done with the ArthroCare wand. Extensive subdeltoid bursectomy was performed after this extensive soft tissue debridement. I did directly visualize the top surface of the rotator cuff and it was seen to be pristine, intact with no tear whatsoever. Patient had a large subacromial spur and a very large sub distal clavicular spur, both of which were taken down with a 5.5-mm oval bur. The bony decompression was fine-tuned in reverse and then with the straight shaver. Once this was done, photographs were taken. The arm was put through a full range of motion under direct visualization and there were no points of near compression. Again, the top surface of the rotator cuff was directly visualized and again there were no tears. It was probed with the blunt end of the trocar. There were no thin portions, no tear whatsoever. The decision was made not to do a rotator cuff repair. The area was copiously irrigated and washed out. All instrumentation, excess saline and debris were removed. The arthroscopy portals were closed with 3-0 nylon sutures covered with Aquacel dressing. The patient's arm was put into a sling. Extubated. Total operative time was about 40 minutes. There were no complications during the case. The patient tolerated the procedure quite well and was brought to the ambulatory recovery room in stable condition. CHIKIS BENNETT M.D. [id number]
[2020-04-08 10:58] VITALS: BP 102/60; PULSE 70; TEMP 97.8
--- NOTE | 2020-04-12 17:52 | PATH ---
Surgical Pathology Report Patient Name: JIM MILLER [facility]. Rec. #: [id number] /Age/Gender: 1960 (Age: 59) / F Account: [id number] Location: [facility] Taken: 04/08/2020 Received: 04/08/2020 Reported: 04/12/2020 Physicians: Nimesh Franco M.D. Specimen(s) Received SHAVINGS LEFT SHOULDER Clinical History Left shoulder impingement syndrome, rotator cuff tear Final Diagnosis SHOULDER SHAVINGS, LEFT, ARTHROSCOPY, SUBACROMIAL DECOMPRESSION: FRAGMENTS OF BENIGN CARTILAGE, BONE, DENSE FIBROCONNECTIVE TISSUE, ADIPOSE TISSUE, AND SKELETAL MUSCLE. Electronically Signed Juju Abebe M.D. Gross Description Received in formalin labeled "left shoulder shavings," is a 4.0 x 4.0 x 1.0 cm aggregate of iraheta-yellow soft tissue fragments. The formalin is filtered and u.s. representative portions submitted in one cassette. ROMINA/04/09/2020 margarita/04/09/2020
== END 2020-04-08 10:58 | disposition home or self-care (01) ==
LOC: FASU 06:09
PROVIDERS: ATTEND Orthopaedic Surgery
PROC: 0PBB4ZZ Excision of Left Clavicle, Percutaneous Endoscopic Approach (ICD-10-PCS; principal; 2020-04-08 08:27)
PROC: 0RNK4ZZ Release Left Shoulder Joint, Percutaneous Endoscopic Approach (ICD-10-PCS; 2020-04-08 08:27)
DX: M75.42 Impingement syndrome of left shoulder (principal)
CPT/HCPCS: 88304-TC; 94760

== ENCOUNTER 2020-06-27 09:47 | Emergency (ER) | payer OTHER ==
[2020-06-27 10:00] VITALS: BP 151/90; TEMP 98
[2020-06-27] MEDS ORDERED: ACETAMINOPHEN 325 MG TABLET (FP) PO ONE (10:22)
[2020-06-27] MEDS ORDERED: ACETAMINOPHEN 325 MG TABLET (FP) ONE (10:39)
[2020-06-27 11:23] VITALS: PULSE 96
== END 2020-06-27 11:27 | disposition home or self-care (01) ==
LOC: JER 09:47
DX: R50.9 Fever, unspecified (principal); R19.7 Diarrhea, unspecified; B34.9 Viral infection, unspecified
CPT/HCPCS: 71045-TC-FY; 87804; 99284-25; C9803; U0003

== ENCOUNTER 2021-02-11 14:35 | Inpatient (IN) | payer OTHER ==
[2021-02-11 14:50] VITALS: BMI 29.5
[2021-02-11] MEDS ORDERED: ACETAMINOPHEN 1000 MG/100 ML VIAL (NON FORMULARY) IVPB ONE (16:43)
[2021-02-11] MEDS ORDERED: SODIUM CHLORIDE 0.9% 500 ML INFUS.BAG IV ONE (16:43)
[2021-02-11] MEDS ORDERED: ONDANSETRON 4 MG/2 ML VIAL IVPUSH ONE ×2 (16:44→21:52)
[2021-02-11] MEDS ORDERED: ACETAMINOPHEN INJECTION 100 ML IVPB ONE (17:28)
[2021-02-11] MEDS ORDERED: ONDANSETRON 4 MG/2 ML VIAL ONE ×2 (17:28→22:45)
[2021-02-11 18:34] LABS: BASO % 0.5 % (0-2.0); EOS % 0.4 % (0-4.5); HEMATOCRIT 37.5 % (32.4-45.2); HEMOGLOBIN 12.2 GM/dL (10.7-15.3); LYMPH % 13.5 % (8-40); MCH 31.1 pg (25.7-33.7); MCHC 32.6 g/dl (32.0-36.0); MEAN CELL VOLUME 95.3 fl (80-96); MEAN PLT VOLUME 8.1 fl (7.5-11.1); MONO % 5.2 % (3.8-10.2); NEUT % 80.4 % (42.8-82.8); PLATELET COUNT 394 10^3/uL (134-434); RBC 3.93 M/mm3 (3.60-5.2); RDW 16.8 % (11.6-15.6); WHITE BLOOD COUNT 9.1 K/mm3 (4.0-10.0)
[2021-02-11 18:38] LABS: URINE APPEARANCE TURBID; URINE BILIRUBIN NEGATIVE (NEGATIVE); URINE COLOR YELLOW; URINE GLUCOSE (UA) NEGATIVE (NEGATIVE); URINE KETONE 1+ (NEGATIVE); URINE LEUK ESTERASE NEGATIVE (NEGATIVE); URINE NITRITE NEGATIVE (NEGATIVE); URINE PROTEIN NEGATIVE (NEGATIVE); URINE UROBILINOGEN 0.2 mg/dL (0.2-1.0)
[2021-02-11 18:53] LABS: CHLORIDE 102 mmol/L (98-107)
[2021-02-11 18:56] LABS: CALCIUM 8.7 mg/dL (8.5-10.1)
[2021-02-11 18:57] LABS: ALBUMIN 3.4 g/dl (3.4-5.0); BLOOD UREA NITROGEN 16.7 mg/dL (7-18); GLUCOSE,RANDOM 102 mg/dL (74-106); LIPASE 254 U/L (73-393)
[2021-02-11 19:00] LABS: CREATININE 0.6 mg/dL (0.55-1.3)
[2021-02-11 19:01] LABS: TOT PROT 9.1 g/dl (6.4-8.2)
[2021-02-11 19:03] LABS: ALK PHOS 167 U/L (45-117)
[2021-02-11 19:54] LABS: ANION GAP -2 MMOL/L (8-16); CO2 19 mmol/L (21-32); SODIUM 119 mmol/L (136-145)
[2021-02-11 21:35] LABS: BLOOD UREA NITROGEN 15.9 mg/dL (7-18); CALCIUM 8.5 mg/dL (8.5-10.1)
[2021-02-11 21:39] LABS: CREATININE 0.6 mg/dL (0.55-1.3)
[2021-02-12] MEDS ORDERED: ONDANSETRON 4 MG/2 ML VIAL IVPUSH PRN (03:21)
[2021-02-12] MEDS: SODIUM CHLORIDE 1,000 ML IV SCH ×2 (06:40→17:53)
[2021-02-12] MEDS ORDERED: ACETAMINOPHEN 325 MG TABLET (FP) PO PRN (09:31)
[2021-02-12 11:43] LABS: BASO % 0.7 % (0-2.0); EOS % 1.2 % (0-4.5); HEMATOCRIT 34.1 % (32.4-45.2); HEMOGLOBIN 11.4 GM/dL (10.7-15.3); LYMPH % 27.2 % (8-40); MCH 31.1 pg (25.7-33.7); MCHC 33.4 g/dl (32.0-36.0); MEAN CELL VOLUME 93.3 fl (80-96); MEAN PLT VOLUME 7.5 fl (7.5-11.1); MONO % 7.3 % (3.8-10.2); NEUT % 63.6 % (42.8-82.8); PLATELET COUNT 346 10^3/uL (134-434); RBC 3.65 M/mm3 (3.60-5.2); RDW 15.9 % (11.6-15.6); WHITE BLOOD COUNT 5.5 K/mm3 (4.0-10.0)
[2021-02-12 11:53] LABS: CALCIUM 8.6 mg/dL (8.5-10.1)
[2021-02-12 11:54] LABS: ALBUMIN 3.2 g/dl (3.4-5.0); BLOOD UREA NITROGEN 9.9 mg/dL (7-18)
[2021-02-12 11:55] LABS: MAGNESIUM 2.2 mg/dL (1.8-2.4)
[2021-02-12 11:57] LABS: CREATININE 0.5 mg/dL (0.55-1.3); PHOSPHOROUS 3.2 mg/dL (2.5-4.9)
[2021-02-12 11:59] LABS: BILIRUBIN,TOTAL 0.4 mg/dL (0.2-1)
[2021-02-12 12:10] LABS: TOT PROT 6.3 g/dl (6.4-8.2)
[2021-02-12 18:40] LABS: METHADONE, UR NEGATIVE (NEGATIVE); OPIATES, URI NEGATIVE (NEGATIVE); PHENCYCLIDINE,URINE NEGATIVE (NEGATIVE); URINE BENZODIAZEPINES NEGATIVE (NEGATIVE)
[2021-02-12 18:49] LABS: COCAINE, UR NEGATIVE (NEGATIVE); URINE AMPHETAMINES NEGATIVE (NEGATIVE); URINE BARBITURATES NEGATIVE (NEGATIVE)
[2021-02-12] MEDS: PANTOPRAZOLE SODIUM 40 MG VIAL IVPUSH SCH ×2 (19:58→21:34)
[2021-02-12] MEDS ORDERED: PREGABALIN 75 MG CAPSULE PO SCH (22:00)
[2021-02-13] MEDS: PANTOPRAZOLE SODIUM 40 MG VIAL IVPUSH SCH (09:20)
[2021-02-13 14:49] VITALS: BP 115/69; PULSE 90; TEMP 98.1
== END 2021-02-13 16:34 | disposition home or self-care (01) | DRG 392 ==
LOC: JER 14:35 → JERBED 22:25 → J6S 02-12 05:23
PROVIDERS: ADMIT Internal Medicine; ATTEND Student in an Organized Health Care Education/Training Program
DX: K29.20 Alcoholic gastritis without bleeding (principal); M62.82 Rhabdomyolysis; F10.188 Alcohol abuse with other alcohol-induced disorder; F41.8 Other specified anxiety disorders; M79.7 Fibromyalgia; R11.2 Nausea with vomiting, unspecified
CPT/HCPCS: 36415; 74177-TC; 80048; 80053; 80307; 81003; 82550; 82553; 83605; 83690; 83735; 84100; 84484; 85025; 86850; 86900; 86901; 87086; 93005; 93010; 99285-25; C9803; J0131; Q9967; U0003; U0005

== ENCOUNTER 2023-07-09 22:21 | Emergency (ER) | payer OTHER ==
[2023-07-09 22:33] VITALS: BP 119/81; PULSE 73; RESP 18; TEMP 98.3; BMI 28.9
[2023-07-10] MEDS ORDERED: FLUORESCEIN NA 1 EA STRIP OU ONE (00:39)
[2023-07-10] MEDS ORDERED: TETRACAINE 0.5% OPHTH SOLN 2 ML BOTTLE ONE (00:41)
[2023-07-10] MEDS ORDERED: FLUORESCEIN NA 1 EA STRIP ONE (00:41)
[2023-07-10] MEDS ORDERED: TETRACAINE 0.5% HCL 0.6ML DROPPER.BOTTLE OS ONE (01:28)
== END 2023-07-10 02:20 | disposition home or self-care (01) ==
LOC: JER 22:21
DX: H57.12 Ocular pain, left eye (principal); H57.89 Other specified disorders of eye and adnexa; H10.212 Acute toxic conjunctivitis, left eye
CPT/HCPCS: 99283-25